=== PATIENT | male | born 1970 | race Caucasian/White ===

== ENCOUNTER 2020-08-11 07:34 | Emergency (ER) | payer MEDICAID ==
[~2020-08-11] VITALS: Ht 185.4 cm; Wt 76.3 kg
[2020-08-11 07:36] VITALS: BP 159/108
[2020-08-11] MEDS ORDERED: PRED10TA23 PO (08:15)
== END 2020-08-11 08:29 | disposition home or self-care (01) ==
LOC: ER 07:35
DX: L23.7 Allergic contact dermatitis due to plants, except food (principal); F12.90 Cannabis use, unspecified, uncomplicated; Z72.89 Other problems related to lifestyle; Z79.899 Other long term (current) drug therapy
CPT/HCPCS: 99283

== ENCOUNTER 2020-08-20 08:54 | Emergency (ER) | payer MEDICAID ==
[~2020-08-20] VITALS: Ht 180.3 cm; Wt 73.0 kg
[~2020-08-20 08:54] MED LIST: PRED10TA23 PO
[2020-08-20 09:05] VITALS: BP 150/106
== END 2020-08-20 10:11 | disposition home or self-care (01) ==
LOC: ER 08:55
DX: L23.7 Allergic contact dermatitis due to plants, except food (principal); F12.90 Cannabis use, unspecified, uncomplicated; Z79.899 Other long term (current) drug therapy
CPT/HCPCS: 99281; 99282

== ENCOUNTER 2020-08-22 18:16 | Emergency (ER) | payer MEDICAID ==
[~2020-08-22] VITALS: Ht 185.4 cm; Wt 76.4 kg
[2020-08-22] MEDS ORDERED: mupirocin 2% ointment 22GM TP STA (19:32)
[2020-08-22] MEDS ORDERED: DOXY100C2 PO (19:43)
[2020-08-22 20:06] VITALS: BP 190/130
== END 2020-08-22 20:08 | disposition home or self-care (01) ==
LOC: ER 18:16
DX: L03.211 Cellulitis of face (principal); F12.90 Cannabis use, unspecified, uncomplicated; Z79.2 Long term (current) use of antibiotics; Z79.899 Other long term (current) drug therapy
CPT/HCPCS: 99283